=== PATIENT | male | born 1945 | race Caucasian/White ===

== ENCOUNTER 2019-10-16 13:35 | Inpatient (IN) ==
[2019-10-16] MEDS ORDERED: ONDANSETRON 4 MG/2 ML VIAL IV PRN (13:44)
[2019-10-16 15:29] LABS: Basophils # 0.1 10*3/uL (0.0-0.2); Basophils % 0.4 % (0.0-0.8); Hematocrit 34.7 VOL% (42.0-52.0); Hemoglobin 11.5 GM/DL (14.0-18.0); Immature Granulocytes % 1.3 %; Immature Granulocytes Absolute 0.19 #; Lymphocytes # 0.4 10*3/uL (1.4-4.0); Lymphocytes % 2.8 % (21.2-54.2); Mean Corpuscular HGB Conc 33.1 GM/DL (32-36); Mean Corpuscular Volume 99.4 FL (87-102); Mean Platelet Volume 11.6 FL (9.6-12.0); Monocytes % 2.9 % (1.7-12.7); Neutrophils % 92.6 % (38.7-73.9); Platelet Count 276 T/CUMM (130-400); Red Blood Count 3.49 MC/CUMM (3.8-5.5); White Blood Count 14.7 T/CUMM (4-12)
[2019-10-16 15:51] LABS: Albumin 2.3 G/DL (3.4-5.0); Calcium 10.3 MG/DL (8.5-10.1); Osmolality,Calculated 271.1 MOS/KG (273-304); Total Protein 7.9 G/DL (6.4-8.3)
[2019-10-16 15:57] LABS: Anisocytosis Slight; Lymphocytes 3 % (20-55); Macrocytosis Slight; Platelet Estimate Normal; Polychromasia Slight; Segmented Neutrophils 96 % (50-85); Total Cells Counted 100
[2019-10-16] MEDS: ACETAMINOPHEN 325 MG TABLET PO PRN (16:03)
[2019-10-16] MEDS: ENOXAPARIN 40 MG/0.4 ML SYRINGE SUBCUT SCH (16:03)
[2019-10-16] MEDS: PIPERACILLIN/TAZOBACTAM 3,375 MG in SODIUM CHLORIDE 0.9% 100 ML IV SCH (16:04)
[2019-10-16] MEDS: SODIUM CHLORIDE 0.9% 1,000 ML IV SCH (16:04)
[2019-10-16 17:27] LABS: Apearance,Urine Slightly Hazy (Clear); Bilirubin,Urine Negative (Negative); Blood, Urine Large mg/dL (Negative); Glucose,Urine (UA) Negative (Negative); Ketones,Urine 5 mg/dL (Negative); Mucus,Urine Occasional /LPF (Occasional); Nitrite,Urine Negative (Negative); Protein,Urine 30 MG/DL; RBC,Urine 106 /HPF (0-4); Squamous Epithelial Cell,Urine Occasional /HPF (0-10); Urine Color Amber (Yellow); Urine Specific Gravity 1.017 (1.001-1.035); WBC,Urine 20 /HPF (0-6)
[2019-10-16 17:44] LABS: Barbiturates Screen,Urine Negative (Negative); Benzodiazepines Screen,Urine Negative (Negative); Cannabinoid Screen,Urine Negative (Negative); Opiate Screen,Urine Negative (Negative); Phencyclidine Screen,Urine Negative (Negative)
[2019-10-16 18:24] LABS: Ferritin 832.6 ng/ml (26-388)
[2019-10-16] MEDS: METOPROLOL SUCCINATE XL 100 MG TABLET PO SCH (20:43)
[2019-10-16] MEDS: DOCUSATE SODIUM 100 MG CAPSULE PO SCH (20:43)
[2019-10-17] MEDS: PIPERACILLIN/TAZOBACTAM 3,375 MG in SODIUM CHLORIDE 0.9% 100 ML IV SCH ×4 (00:10→22:09)
[2019-10-17] MEDS: SODIUM CHLORIDE 0.9% 1,000 ML IV SCH ×3 (01:21→17:17)
[2019-10-17 06:22] LABS: Basophils # 0.1 10*3/uL (0.0-0.2); Basophils % 0.4 % (0.0-0.8); Hematocrit 31.1 VOL% (42.0-52.0); Hemoglobin 10.7 GM/DL (14.0-18.0); Immature Granulocytes % 0.7 %; Immature Granulocytes Absolute 0.12 #; Lymphocytes # 0.8 10*3/uL (1.4-4.0); Lymphocytes % 4.9 % (21.2-54.2); Mean Corpuscular HGB Conc 34.4 GM/DL (32-36); Mean Corpuscular Volume 94.8 FL (87-102); Mean Platelet Volume 12.5 FL (9.6-12.0); Monocytes % 4.6 % (1.7-12.7); Neutrophils % 89.4 % (38.7-73.9); Platelet Count 224 T/CUMM (130-400); Red Blood Count 3.28 MC/CUMM (3.8-5.5); Red Cell Distribution Width 13.6 % (9.3-17.3); White Blood Count 17.1 T/CUMM (4-12)
[2019-10-17 06:42] LABS: Hypochromasia 1+; Lymphocytes 8 % (20-55); Platelet Estimate Adequate; Segmented Neutrophils 87 % (50-85); Total Cells Counted 100
[2019-10-17 06:43] LABS: Macrocytosis Slight
[2019-10-17 06:53] LABS: Calcium 9.8 MG/DL (8.5-10.1); Osmolality,Calculated 264.7 MOS/KG (273-304)
[2019-10-17] MEDS: NYSTATIN 500,000 UNIT/5 ML UDCUP SWISH/SWAL SCH ×4 (10:02→20:30)
[2019-10-17] MEDS: DOCUSATE SODIUM 100 MG CAPSULE PO SCH ×2 (10:02→20:30)
[2019-10-17] MEDS: PANTOPRAZOLE 40 MG TABLET PO SCH (10:02)
[2019-10-17] MEDS: METOPROLOL SUCCINATE XL 50 MG TABLET PO SCH (10:02)
[2019-10-17] MEDS: ENOXAPARIN 40 MG/0.4 ML SYRINGE SUBCUT SCH (17:17)
[2019-10-17] MEDS: METOPROLOL SUCCINATE XL 100 MG TABLET PO SCH (20:30)
[2019-10-18] MEDS: SODIUM CHLORIDE 0.9% 1,000 ML IV SCH ×3 (05:34→16:34)
[2019-10-18 06:00] LABS: Basophils # 0.1 10*3/uL (0.0-0.2); Basophils % 0.4 % (0.0-0.8); Eosinophils # 0.1 10*3/uL (0.0-0.87); Eosinophils % 0.5 % (0.00-10.9); Hematocrit 31.3 VOL% (42.0-52.0); Hemoglobin 10.7 GM/DL (14.0-18.0); Immature Granulocytes % 1.2 %; Immature Granulocytes Absolute 0.16 #; Lymphocytes # 0.8 10*3/uL (1.4-4.0); Lymphocytes % 5.9 % (21.2-54.2); Mean Corpuscular HGB Conc 34.2 GM/DL (32-36); Mean Corpuscular Volume 95.7 FL (87-102); Mean Platelet Volume 12.3 FL (9.6-12.0); Platelet Count 272 T/CUMM (130-400); Red Blood Count 3.27 MC/CUMM (3.8-5.5); Red Cell Distribution Width 13.7 % (9.3-17.3); White Blood Count 13.8 T/CUMM (4-12)
[2019-10-18] MEDS: PIPERACILLIN/TAZOBACTAM 3,375 MG in SODIUM CHLORIDE 0.9% 100 ML IV SCH ×3 (06:09→22:19)
[2019-10-18 06:17] LABS: Calcium 10.2 MG/DL (8.5-10.1); Osmolality,Calculated 275.8 MOS/KG (273-304)
[2019-10-18 06:24] LABS: Target Cells Slight
[2019-10-18 06:25] LABS: Hypochromasia 1+; Macrocytosis Slight; Platelet Estimate Normal; Polychromasia Slight
[2019-10-18] MEDS: METOPROLOL SUCCINATE XL 50 MG TABLET PO SCH (09:02)
[2019-10-18] MEDS: DOCUSATE SODIUM 100 MG CAPSULE PO SCH ×2 (09:02→21:15)
[2019-10-18] MEDS: PANTOPRAZOLE 40 MG TABLET PO SCH (09:02)
[2019-10-18] MEDS: NYSTATIN 500,000 UNIT/5 ML UDCUP SWISH/SWAL SCH ×4 (09:02→21:15)
[2019-10-18] MEDS: ENOXAPARIN 40 MG/0.4 ML SYRINGE SUBCUT SCH (16:33)
[2019-10-18] MEDS: METOPROLOL SUCCINATE XL 100 MG TABLET PO SCH (21:15)
[2019-10-19 06:11] LABS: Calcium 10.6 MG/DL (8.5-10.1); Osmolality,Calculated 272.8 MOS/KG (273-304)
[2019-10-19] MEDS: PIPERACILLIN/TAZOBACTAM 3,375 MG in SODIUM CHLORIDE 0.9% 100 ML IV SCH ×2 (06:32→15:20)
[2019-10-19 06:34] LABS: Basophils # 0.1 10*3/uL (0.0-0.2); Basophils % 0.7 % (0.0-0.8); Eosinophils # 0.1 10*3/uL (0.0-0.87); Eosinophils % 0.7 % (0.00-10.9); Hematocrit 34.9 VOL% (42.0-52.0); Hemoglobin 11.7 GM/DL (14.0-18.0); Immature Granulocytes % 1.1 %; Immature Granulocytes Absolute 0.13 #; Lymphocytes % 8.1 % (21.2-54.2); Mean Corpuscular HGB Conc 33.5 GM/DL (32-36); Mean Corpuscular Volume 96.9 FL (87-102); Mean Platelet Volume 13.7 FL (9.6-12.0); Monocytes % 5.2 % (1.7-12.7); Neutrophils % 84.2 % (38.7-73.9); Platelet Count 201 T/CUMM (130-400); Red Cell Distribution Width 14.1 % (9.3-17.3); White Blood Count 12.4 T/CUMM (4-12)
[2019-10-19] MEDS: SODIUM CHLORIDE 0.9% 1,000 ML IV SCH ×2 (07:46→20:45)
[2019-10-19] MEDS: NYSTATIN 500,000 UNIT/5 ML UDCUP SWISH/SWAL SCH ×4 (08:14→20:45)
[2019-10-19] MEDS: METOPROLOL SUCCINATE XL 50 MG TABLET PO SCH (08:14)
[2019-10-19] MEDS: PANTOPRAZOLE 40 MG TABLET PO SCH (08:14)
[2019-10-19] MEDS: DOCUSATE SODIUM 100 MG CAPSULE PO SCH ×2 (08:14→20:45)
[2019-10-19] MEDS ORDERED: FUROSEMIDE 40 MG TABLET PO ONE (09:00)
[2019-10-19] MEDS: ENOXAPARIN 40 MG/0.4 ML SYRINGE SUBCUT SCH (15:20)
[2019-10-19] MEDS: METOPROLOL SUCCINATE XL 100 MG TABLET PO SCH (20:45)
[2019-10-20] MEDS: PIPERACILLIN/TAZOBACTAM 3,375 MG in SODIUM CHLORIDE 0.9% 100 ML IV SCH ×3 (01:20→14:50)
[2019-10-20 06:49] LABS: Bilirubin,Total 2.2 MG/DL (0.2-1.0); Calcium 10.1 MG/DL (8.5-10.1); Ferritin 677.9 ng/ml (26-388); Osmolality,Calculated 271.8 MOS/KG (273-304); Total Protein 7.7 G/DL (6.4-8.3)
[2019-10-20 07:08] LABS: Albumin 1.9 G/DL (3.4-5.0); Bilirubin,Direct 0.3 MG/DL (0.0-0.20); Bilirubin,Indirect 1.3 MG/DL (0.0-1.0); Bilirubin,Total 1.6 MG/DL (0.2-1.0); Total Protein 7.8 G/DL (6.4-8.3)
[2019-10-20] MEDS: NYSTATIN 500,000 UNIT/5 ML UDCUP SWISH/SWAL SCH ×4 (09:46→20:30)
[2019-10-20] MEDS: PANTOPRAZOLE 40 MG TABLET PO SCH (09:47)
[2019-10-20] MEDS: METOPROLOL SUCCINATE XL 50 MG TABLET PO SCH (09:47)
[2019-10-20] MEDS: DOCUSATE SODIUM 100 MG CAPSULE PO SCH ×2 (09:47→20:30)
[2019-10-20] MEDS: ENOXAPARIN 40 MG/0.4 ML SYRINGE SUBCUT SCH (14:51)
[2019-10-20] MEDS: METOPROLOL SUCCINATE XL 100 MG TABLET PO SCH (20:30)
[2019-10-21] MEDS: PIPERACILLIN/TAZOBACTAM 3,375 MG in SODIUM CHLORIDE 0.9% 100 ML IV SCH ×4 (00:58→23:39)
[2019-10-21 06:09] LABS: Bilirubin,Total 1.5 MG/DL (0.2-1.0); Calcium 9.8 MG/DL (8.5-10.1); Osmolality,Calculated 272.8 MOS/KG (273-304); Total Protein 7.6 G/DL (6.4-8.3)
[2019-10-21] MEDS: SODIUM CHLORIDE 0.9% 1,000 ML IV SCH ×3 (07:07→18:12)
[2019-10-21] MEDS: DOCUSATE SODIUM 100 MG CAPSULE PO SCH ×2 (08:07→20:21)
[2019-10-21] MEDS: METOPROLOL SUCCINATE XL 50 MG TABLET PO SCH (08:07)
[2019-10-21] MEDS: NYSTATIN 500,000 UNIT/5 ML UDCUP SWISH/SWAL SCH ×4 (08:07→20:21)
[2019-10-21] MEDS: PANTOPRAZOLE 40 MG TABLET PO SCH (08:07)
[2019-10-21] MEDS ORDERED: FUROSEMIDE 40 MG/4 ML VIAL IV ONE (15:28)
[2019-10-21] MEDS: ENOXAPARIN 40 MG/0.4 ML SYRINGE SUBCUT SCH (16:09)
[2019-10-21] MEDS: METOPROLOL SUCCINATE XL 100 MG TABLET PO SCH (20:21)
[2019-10-22 06:11] LABS: Bilirubin,Total 1.5 MG/DL (0.2-1.0); Calcium 10.1 MG/DL (8.5-10.1); Osmolality,Calculated 273.8 MOS/KG (273-304)
[2019-10-22] MEDS: SODIUM CHLORIDE 0.9% 1,000 ML IV SCH ×2 (07:09→16:04)
[2019-10-22] MEDS: PIPERACILLIN/TAZOBACTAM 3,375 MG in SODIUM CHLORIDE 0.9% 100 ML IV SCH ×3 (07:09→23:15)
[2019-10-22] MEDS: PANTOPRAZOLE 40 MG TABLET PO SCH (09:18)
[2019-10-22] MEDS: DOCUSATE SODIUM 100 MG CAPSULE PO SCH ×2 (09:18→20:32)
[2019-10-22] MEDS: NYSTATIN 500,000 UNIT/5 ML UDCUP SWISH/SWAL SCH ×4 (09:18→20:31)
[2019-10-22] MEDS: METOPROLOL SUCCINATE XL 50 MG TABLET PO SCH (09:18)
[2019-10-22] MEDS: FUROSEMIDE 40 MG/4 ML VIAL IV SCH (09:18)
[2019-10-22] MEDS: VANCOMYCIN INJ 1,500 MG in SODIUM CHLORIDE 0.9% 500 ML IV SCH (14:18)
[2019-10-22] MEDS: ENOXAPARIN 40 MG/0.4 ML SYRINGE SUBCUT SCH (14:28)
[2019-10-22] MEDS: METOPROLOL SUCCINATE XL 100 MG TABLET PO SCH (20:31)
[2019-10-22] MEDS: ACETAMINOPHEN 325 MG TABLET PO PRN (23:15)
[2019-10-23] MEDS: ACETAMINOPHEN 325 MG TABLET PO PRN (05:18)
[2019-10-23] MEDS: SODIUM CHLORIDE 0.9% 1,000 ML IV SCH (05:21)
[2019-10-23 06:00] LABS: Basophils # 0.1 10*3/uL (0.0-0.2); Basophils % 0.7 % (0.0-0.8); Eosinophils # 0.2 10*3/uL (0.0-0.87); Eosinophils % 1.7 % (0.00-10.9); Hematocrit 28.6 VOL% (42.0-52.0); Hemoglobin 9.3 GM/DL (14.0-18.0); Immature Granulocytes % 0.9 %; Immature Granulocytes Absolute 0.11 #; Lymphocytes # 1.1 10*3/uL (1.4-4.0); Lymphocytes % 9.3 % (21.2-54.2); Mean Corpuscular HGB Conc 32.5 GM/DL (32-36); Mean Corpuscular Volume 99.7 FL (87-102); Mean Platelet Volume 11.1 FL (9.6-12.0); Monocytes % 6.1 % (1.7-12.7); Neutrophils % 81.3 % (38.7-73.9); Platelet Count 427 T/CUMM (130-400); Red Blood Count 2.87 MC/CUMM (3.8-5.5); Red Cell Distribution Width 13.6 % (9.3-17.3); White Blood Count 11.7 T/CUMM (4-12)
[2019-10-23 06:15] LABS: Calcium 9.8 MG/DL (8.5-10.1)
[2019-10-23] MEDS: PIPERACILLIN/TAZOBACTAM 3,375 MG in SODIUM CHLORIDE 0.9% 100 ML IV SCH ×3 (06:28→22:19)
[2019-10-23] MEDS: VANCOMYCIN INJ 1,500 MG in SODIUM CHLORIDE 0.9% 500 ML IV SCH (08:52)
[2019-10-23] MEDS: NYSTATIN 500,000 UNIT/5 ML UDCUP SWISH/SWAL SCH ×4 (09:00→21:37)
[2019-10-23] MEDS: METOPROLOL SUCCINATE XL 50 MG TABLET PO SCH (09:01)
[2019-10-23] MEDS: FUROSEMIDE 40 MG/4 ML VIAL IV SCH (09:01)
[2019-10-23] MEDS: PANTOPRAZOLE 40 MG TABLET PO SCH (09:01)
[2019-10-23] MEDS: DOCUSATE SODIUM 100 MG CAPSULE PO SCH ×2 (09:02→21:36)
[2019-10-23] MEDS: ENOXAPARIN 40 MG/0.4 ML SYRINGE SUBCUT SCH (17:06)
[2019-10-23] MEDS: METOPROLOL SUCCINATE XL 100 MG TABLET PO SCH (21:37)
[2019-10-24] MEDS: SODIUM CHLORIDE 0.9% 1,000 ML IV SCH ×2 (00:07→22:30)
[2019-10-24] MEDS: VANCOMYCIN INJ 1,500 MG in SODIUM CHLORIDE 0.9% 500 ML IV SCH ×2 (02:42→22:31)
[2019-10-24 06:49] LABS: Basophils # 0.1 10*3/uL (0.0-0.2); Basophils % 0.8 % (0.0-0.8); Eosinophils # 0.3 10*3/uL (0.0-0.87); Eosinophils % 2.9 % (0.00-10.9); Hematocrit 26.4 VOL% (42.0-52.0); Hemoglobin 8.5 GM/DL (14.0-18.0); Immature Granulocytes % 0.8 %; Immature Granulocytes Absolute 0.07 #; Lymphocytes # 1.1 10*3/uL (1.4-4.0); Lymphocytes % 12.5 % (21.2-54.2); Mean Corpuscular HGB Conc 32.2 GM/DL (32-36); Mean Corpuscular Volume 101.1 FL (87-102); Mean Platelet Volume 11.2 FL (9.6-12.0); Monocytes % 10.3 % (1.7-12.7); Neutrophils % 72.7 % (38.7-73.9); Platelet Count 402 T/CUMM (130-400); Red Blood Count 2.61 MC/CUMM (3.8-5.5); Red Cell Distribution Width 13.6 % (9.3-17.3); White Blood Count 8.7 T/CUMM (4-12)
[2019-10-24] MEDS: PIPERACILLIN/TAZOBACTAM 3,375 MG in SODIUM CHLORIDE 0.9% 100 ML IV SCH ×2 (07:10→17:17)
[2019-10-24 07:11] LABS: Calcium 10.1 MG/DL (8.5-10.1); Osmolality,Calculated 273.8 MOS/KG (273-304)
[2019-10-24] MEDS: NYSTATIN 500,000 UNIT/5 ML UDCUP SWISH/SWAL SCH ×4 (09:05→22:31)
[2019-10-24] MEDS: PANTOPRAZOLE 40 MG TABLET PO SCH (09:05)
[2019-10-24] MEDS: METOPROLOL SUCCINATE XL 50 MG TABLET PO SCH (09:05)
[2019-10-24] MEDS: FUROSEMIDE 40 MG/4 ML VIAL IV SCH (09:06)
[2019-10-24] MEDS: DOCUSATE SODIUM 100 MG CAPSULE PO SCH ×2 (09:06→22:32)
[2019-10-24] MEDS: ENOXAPARIN 40 MG/0.4 ML SYRINGE SUBCUT SCH (17:17)
[2019-10-24] MEDS: METOPROLOL SUCCINATE XL 100 MG TABLET PO SCH (22:32)
[2019-10-25] MEDS: PIPERACILLIN/TAZOBACTAM 3,375 MG in SODIUM CHLORIDE 0.9% 100 ML IV SCH ×3 (02:17→17:45)
[2019-10-25 06:02] LABS: Basophils # 0.1 10*3/uL (0.0-0.2); Basophils % 0.6 % (0.0-0.8); Eosinophils # 0.2 10*3/uL (0.0-0.87); Eosinophils % 2.2 % (0.00-10.9); Hematocrit 25.8 VOL% (42.0-52.0); Hemoglobin 8.2 GM/DL (14.0-18.0); Immature Granulocytes % 0.7 %; Immature Granulocytes Absolute 0.06 #; Lymphocytes % 11.5 % (21.2-54.2); Mean Corpuscular HGB Conc 31.8 GM/DL (32-36); Mean Platelet Volume 11.1 FL (9.6-12.0); Monocytes % 8.3 % (1.7-12.7); Neutrophils % 76.7 % (38.7-73.9); Platelet Count 394 T/CUMM (130-400); Red Blood Count 2.53 MC/CUMM (3.8-5.5); Red Cell Distribution Width 13.6 % (9.3-17.3); White Blood Count 8.3 T/CUMM (4-12)
[2019-10-25 06:32] LABS: Calcium 9.8 MG/DL (8.5-10.1); Osmolality,Calculated 272.8 MOS/KG (273-304)
[2019-10-25] MEDS: FUROSEMIDE 40 MG/4 ML VIAL IV SCH (09:20)
[2019-10-25] MEDS: DOCUSATE SODIUM 100 MG CAPSULE PO SCH ×4 (09:20→21:37)
[2019-10-25] MEDS: METOPROLOL SUCCINATE XL 50 MG TABLET PO SCH (09:20)
[2019-10-25] MEDS: NYSTATIN 500,000 UNIT/5 ML UDCUP SWISH/SWAL SCH ×4 (09:20→21:35)
[2019-10-25] MEDS: PANTOPRAZOLE 40 MG TABLET PO SCH (09:20)
[2019-10-25] MEDS: NYSTATIN CREAM 15 GM TUBE TOP SCH ×2 (11:28→21:35)
[2019-10-25] MEDS: VANCOMYCIN INJ 1,500 MG in SODIUM CHLORIDE 0.9% 500 ML IV SCH (14:52)
[2019-10-25] MEDS: ENOXAPARIN 40 MG/0.4 ML SYRINGE SUBCUT SCH (14:52)
[2019-10-25] MEDS: SODIUM CHLORIDE 0.9% 1,000 ML IV SCH (17:45)
[2019-10-25] MEDS: METOPROLOL SUCCINATE XL 100 MG TABLET PO SCH (21:35)
[2019-10-26] MEDS: PIPERACILLIN/TAZOBACTAM 3,375 MG in SODIUM CHLORIDE 0.9% 100 ML IV SCH ×3 (03:00→17:27)
[2019-10-26 07:12] LABS: Basophils % 0.4 % (0.0-0.8); Eosinophils # 0.1 10*3/uL (0.0-0.87); Eosinophils % 1.5 % (0.00-10.9); Hematocrit 24.9 VOL% (42.0-52.0); Hemoglobin 8.2 GM/DL (14.0-18.0); Immature Granulocytes % 0.4 %; Immature Granulocytes Absolute 0.04 #; Lymphocytes % 10.1 % (21.2-54.2); Mean Corpuscular HGB Conc 32.9 GM/DL (32-36); Mean Corpuscular Volume 98.4 FL (87-102); Mean Platelet Volume 10.7 FL (9.6-12.0); Neutrophils % 79.6 % (38.7-73.9); Platelet Count 346 T/CUMM (130-400); Red Blood Count 2.53 MC/CUMM (3.8-5.5); Red Cell Distribution Width 13.5 % (9.3-17.3); White Blood Count 9.4 T/CUMM (4-12)
[2019-10-26] MEDS: DOCUSATE SODIUM 100 MG CAPSULE PO SCH ×2 (09:11→21:36)
[2019-10-26] MEDS: VANCOMYCIN INJ 1,500 MG in SODIUM CHLORIDE 0.9% 500 ML IV SCH (09:11)
[2019-10-26] MEDS: METOPROLOL SUCCINATE XL 50 MG TABLET PO SCH (09:11)
[2019-10-26] MEDS: NYSTATIN 500,000 UNIT/5 ML UDCUP SWISH/SWAL SCH ×4 (09:12→21:35)
[2019-10-26] MEDS: FUROSEMIDE 40 MG/4 ML VIAL IV SCH (09:12)
[2019-10-26] MEDS: NYSTATIN CREAM 15 GM TUBE TOP SCH ×2 (09:14→23:11)
[2019-10-26] MEDS: PANTOPRAZOLE 40 MG TABLET PO SCH (09:14)
[2019-10-26] MEDS: ENOXAPARIN 40 MG/0.4 ML SYRINGE SUBCUT SCH (14:01)
[2019-10-26] MEDS: ACETAMINOPHEN 325 MG TABLET PO PRN (21:35)
[2019-10-26] MEDS: METOPROLOL SUCCINATE XL 100 MG TABLET PO SCH (21:36)
[2019-10-27] MEDS: VANCOMYCIN INJ 1,500 MG in SODIUM CHLORIDE 0.9% 500 ML IV SCH (01:08)
[2019-10-27] MEDS: PIPERACILLIN/TAZOBACTAM 3,375 MG in SODIUM CHLORIDE 0.9% 100 ML IV SCH (01:10)
[2019-10-27] MEDS: SODIUM CHLORIDE 0.9% 1,000 ML IV SCH ×2 (08:50→08:52)
[2019-10-27] MEDS: PANTOPRAZOLE 40 MG TABLET PO SCH (08:52)
[2019-10-27] MEDS: NYSTATIN 500,000 UNIT/5 ML UDCUP SWISH/SWAL SCH ×4 (08:52→20:50)
[2019-10-27] MEDS: METOPROLOL SUCCINATE XL 50 MG TABLET PO SCH (08:52)
[2019-10-27] MEDS: FUROSEMIDE 40 MG/4 ML VIAL IV SCH (08:53)
[2019-10-27] MEDS: FLUCONAZOLE 100 MG TABLET PO SCH (08:53)
[2019-10-27] MEDS: DOCUSATE SODIUM 100 MG CAPSULE PO SCH ×2 (08:53→20:55)
[2019-10-27] MEDS: NYSTATIN CREAM 15 GM TUBE TOP SCH ×2 (08:54→20:50)
[2019-10-27] MEDS: ceFAZolin 2,000 MG in PREMIX 1 EACH IV SCH ×2 (10:57→17:32)
[2019-10-27] MEDS: ENOXAPARIN 40 MG/0.4 ML SYRINGE SUBCUT SCH (14:41)
[2019-10-27] MEDS: METOPROLOL SUCCINATE XL 100 MG TABLET PO SCH (20:52)
[2019-10-28] MEDS: ceFAZolin 2,000 MG in PREMIX 1 EACH IV SCH ×3 (01:26→17:28)
[2019-10-28] MEDS: SODIUM CHLORIDE 0.9% 1,000 ML IV SCH ×2 (04:51→21:26)
[2019-10-28 06:15] LABS: Basophils # 0.1 10*3/uL (0.0-0.2); Basophils % 0.7 % (0.0-0.8); Eosinophils # 0.2 10*3/uL (0.0-0.87); Eosinophils % 1.8 % (0.00-10.9); Hematocrit 24.8 VOL% (42.0-52.0); Hemoglobin 7.9 GM/DL (14.0-18.0); Immature Granulocytes % 0.3 %; Immature Granulocytes Absolute 0.03 #; Lymphocytes # 0.9 10*3/uL (1.4-4.0); Lymphocytes % 9.7 % (21.2-54.2); Mean Corpuscular HGB Conc 31.9 GM/DL (32-36); Mean Corpuscular Volume 99.6 FL (87-102); Mean Platelet Volume 11.4 FL (9.6-12.0); Monocytes % 6.6 % (1.7-12.7); Neutrophils % 80.9 % (38.7-73.9); Platelet Count 351 T/CUMM (130-400); Red Blood Count 2.49 MC/CUMM (3.8-5.5); Red Cell Distribution Width 13.2 % (9.3-17.3); White Blood Count 8.8 T/CUMM (4-12)
[2019-10-28 06:45] LABS: Calcium 9.9 MG/DL (8.5-10.1)
[2019-10-28] MEDS: FUROSEMIDE 40 MG/4 ML VIAL IV SCH (09:15)
[2019-10-28] MEDS: FLUCONAZOLE 100 MG TABLET PO SCH (09:17)
[2019-10-28] MEDS: METOPROLOL SUCCINATE XL 50 MG TABLET PO SCH (09:17)
[2019-10-28] MEDS: PANTOPRAZOLE 40 MG TABLET PO SCH (09:17)
[2019-10-28] MEDS: NYSTATIN 500,000 UNIT/5 ML UDCUP SWISH/SWAL SCH ×4 (09:17→21:25)
[2019-10-28] MEDS: NYSTATIN CREAM 15 GM TUBE TOP SCH ×2 (09:18→21:30)
[2019-10-28] MEDS: DOCUSATE SODIUM 100 MG CAPSULE PO SCH ×2 (09:20→21:25)
[2019-10-28] MEDS: ENOXAPARIN 40 MG/0.4 ML SYRINGE SUBCUT SCH (14:00)
[2019-10-28] MEDS: METOPROLOL SUCCINATE XL 100 MG TABLET PO SCH (21:25)
[2019-10-29] MEDS: ceFAZolin 2,000 MG in PREMIX 1 EACH IV SCH ×3 (02:31→17:40)
[2019-10-29] MEDS: SODIUM CHLORIDE 0.9% 1,000 ML IV SCH ×2 (07:00→19:39)
[2019-10-29] MEDS: FLUCONAZOLE 100 MG TABLET PO SCH (09:07)
[2019-10-29] MEDS: METOPROLOL SUCCINATE XL 50 MG TABLET PO SCH (09:07)
[2019-10-29] MEDS: PANTOPRAZOLE 40 MG TABLET PO SCH (09:07)
[2019-10-29] MEDS: NYSTATIN 500,000 UNIT/5 ML UDCUP SWISH/SWAL SCH ×4 (09:08→21:51)
[2019-10-29] MEDS: FUROSEMIDE 40 MG/4 ML VIAL IV SCH (09:08)
[2019-10-29] MEDS: DOCUSATE SODIUM 100 MG CAPSULE PO SCH ×2 (09:09→21:51)
[2019-10-29] MEDS: NYSTATIN CREAM 15 GM TUBE TOP SCH ×2 (09:09→23:16)
[2019-10-29] MEDS: ENOXAPARIN 40 MG/0.4 ML SYRINGE SUBCUT SCH (14:15)
[2019-10-29] MEDS: METOPROLOL SUCCINATE XL 100 MG TABLET PO SCH (21:53)
[2019-10-30] MEDS: ceFAZolin 2,000 MG in PREMIX 1 EACH IV SCH ×3 (03:04→17:26)
[2019-10-30] MEDS: METOPROLOL SUCCINATE XL 50 MG TABLET PO SCH (08:44)
[2019-10-30] MEDS: FUROSEMIDE 40 MG/4 ML VIAL IV SCH (08:44)
[2019-10-30] MEDS: DOCUSATE SODIUM 100 MG CAPSULE PO SCH ×3 (08:44→22:27)
[2019-10-30] MEDS: NYSTATIN 500,000 UNIT/5 ML UDCUP SWISH/SWAL SCH ×4 (08:44→22:25)
[2019-10-30] MEDS: PANTOPRAZOLE 40 MG TABLET PO SCH (08:44)
[2019-10-30] MEDS: NYSTATIN CREAM 15 GM TUBE TOP SCH ×2 (08:45→22:27)
[2019-10-30 10:46] LABS: Basophils # 0.1 10*3/uL (0.0-0.2); Basophils % 0.6 % (0.0-0.8); Eosinophils # 0.1 10*3/uL (0.0-0.87); Eosinophils % 1.5 % (0.00-10.9); Hematocrit 27.5 VOL% (42.0-52.0); Hemoglobin 8.7 GM/DL (14.0-18.0); Immature Granulocytes % 0.4 %; Immature Granulocytes Absolute 0.04 #; Lymphocytes # 1.1 10*3/uL (1.4-4.0); Lymphocytes % 11.8 % (21.2-54.2); Mean Corpuscular HGB Conc 31.6 GM/DL (32-36); Mean Corpuscular Volume 101.5 FL (87-102); Mean Platelet Volume 11.3 FL (9.6-12.0); Monocytes % 6.2 % (1.7-12.7); Neutrophils % 79.5 % (38.7-73.9); Platelet Count 357 T/CUMM (130-400); Red Blood Count 2.71 MC/CUMM (3.8-5.5); Red Cell Distribution Width 13.3 % (9.3-17.3); White Blood Count 8.9 T/CUMM (4-12)
[2019-10-30 11:03] LABS: Calcium 10.4 MG/DL (8.5-10.1); Osmolality,Calculated 268.1 MOS/KG (273-304)
[2019-10-30] MEDS: ENOXAPARIN 40 MG/0.4 ML SYRINGE SUBCUT SCH (15:16)
[2019-10-30] MEDS: SODIUM CHLORIDE 0.9% 1,000 ML IV SCH (15:17)
[2019-10-30] MEDS: METOPROLOL SUCCINATE XL 100 MG TABLET PO SCH (22:25)
[2019-10-31] MEDS: ceFAZolin 2,000 MG in PREMIX 1 EACH IV SCH ×2 (02:55→09:24)
[2019-10-31] MEDS: PANTOPRAZOLE 40 MG TABLET PO SCH ×2 (09:12→09:18)
[2019-10-31] MEDS: METOPROLOL SUCCINATE XL 50 MG TABLET PO SCH (09:12)
[2019-10-31] MEDS: NYSTATIN CREAM 15 GM TUBE TOP SCH (09:13)
[2019-10-31] MEDS: DOCUSATE SODIUM 100 MG CAPSULE PO SCH (09:14)
[2019-10-31] MEDS: FUROSEMIDE 40 MG/4 ML VIAL IV SCH (09:19)
[2019-10-31] MEDS: NYSTATIN 500,000 UNIT/5 ML UDCUP SWISH/SWAL SCH ×2 (09:20→13:50)
[2019-10-31 12:54] VITALS: BP 125/48
== END 2019-10-31 14:35 | DRG 871 ==
LOC: N.3E 14:27 → N.2E 10-17 12:28 → N.3E 10-22 13:03
PROVIDERS: ADMIT Internal Medicine; ATTEND Internal Medicine

== ENCOUNTER 2020-07-06 14:42 | Inpatient (IN) ==
[2020-07-06 18:04] LABS: Basophils % 0.2 % (0.0-0.8); Hematocrit 44.9 VOL% (42.0-52.0); Hemoglobin 15.1 GM/DL (14.0-18.0); Immature Granulocytes % 0.4 %; Immature Granulocytes Absolute 0.04 #; Lymphocytes # 0.5 10*3/uL (1.4-4.0); Lymphocytes % 5.8 % (21.2-54.2); Mean Corpuscular HGB Conc 33.6 GM/DL (32-36); Mean Corpuscular Volume 101.1 FL (87-102); Mean Platelet Volume 11.2 FL (9.6-12.0); Neutrophils % 90.6 % (38.7-73.9); Platelet Count 176 T/CUMM (130-400); Red Blood Count 4.44 MC/CUMM (3.8-5.5); Red Cell Distribution Width 13.5 % (9.3-17.3); White Blood Count 9.4 T/CUMM (4-12)
[2020-07-06] MEDS ORDERED: SODIUM CHLORIDE 0.9% 500 ML IV STA (18:36)
[2020-07-06] MEDS ORDERED: SODIUM CHLORIDE 0.9% 250 ML IV STA (18:39)
[2020-07-06 19:02] LABS: Barbiturates Screen,Urine Negative (Negative); Benzodiazepines Screen,Urine Negative (Negative); Cannabinoid Screen,Urine Negative (Negative); Opiate Screen,Urine Negative (Negative); Phencyclidine Screen,Urine Negative (Negative)
[2020-07-06 19:05] LABS: Bilirubin,Urine Negative (Negative); Blood, Urine Moderate mg/dL (Negative); Glucose,Urine (UA) Negative (Negative); Ketones,Urine Negative (Negative); Mucus,Urine Occasional /LPF (Occasional); Nitrite,Urine Negative (Negative); Protein,Urine 30 MG/DL; RBC,Urine 3 /HPF (0-4); Squamous Epithelial Cell,Urine Occasional /HPF (0-10); Urine Appearance CLEAR (Clear); Urine Color Yellow (Yellow); Urine Specific Gravity 1.021 (1.001-1.035); Urine Urobilinogen < 2.0 EU/DL (0.2-1.0); WBC,Urine 5 /HPF (0-6)
[2020-07-06 19:42] LABS: Lymphocytes 2 % (20-55); Segmented Neutrophils 97 % (50-85); Total Cells Counted 100
[2020-07-06 19:51] LABS: Albumin 3.9 G/DL (3.4-5.0); Bilirubin,Total 1.4 MG/DL (0.2-1.0); Calcium 9.6 MG/DL (8.5-10.1); Osmolality,Calculated 268.4 MOS/KG (273-304); Total Protein 9.6 G/DL (6.4-8.3)
[2020-07-06] MEDS ORDERED: SODIUM CHLORIDE 0.9% 1,000 ML IV STA (19:56)
[2020-07-06] MEDS ORDERED: MORPHINE 4 MG/1 ML VIAL IV STA (20:16)
[2020-07-06] MEDS ORDERED: ONDANSETRON 4 MG/2 ML VIAL IV PRN (21:40)
[2020-07-06] MEDS ORDERED: LORazepam 2 MG/1 ML VIAL IV PRN (21:44)
[2020-07-07] MEDS: MORPHINE 4 MG/1 ML VIAL IV PRN ×2 (00:43→19:48)
[2020-07-07] MEDS: SODIUM CHLORIDE 0.9% 1,000 ML IV SCH ×2 (00:44→13:21)
[2020-07-07 05:16] LABS: Basophils % 0.1 % (0.0-0.8); Hematocrit 43.7 VOL% (42.0-52.0); Hemoglobin 14.8 GM/DL (14.0-18.0); Immature Granulocytes % 0.6 %; Immature Granulocytes Absolute 0.05 #; Lymphocytes # 0.8 10*3/uL (1.4-4.0); Lymphocytes % 8.6 % (21.2-54.2); Mean Corpuscular HGB Conc 33.9 GM/DL (32-36); Mean Corpuscular Volume 99.1 FL (87-102); Mean Platelet Volume 10.5 FL (9.6-12.0); Monocytes % 5.5 % (1.7-12.7); Neutrophils % 85.2 % (38.7-73.9); Platelet Count 175 T/CUMM (130-400); Red Blood Count 4.41 MC/CUMM (3.8-5.5); Red Cell Distribution Width 13.4 % (9.3-17.3); White Blood Count 8.9 T/CUMM (4-12)
[2020-07-07 05:27] LABS: INR 1.1; PT Patient Result 11.9 SECS (9.8-11.9); Partial Thromboplastin Time 26.5 SECS (23.9-33.8)
[2020-07-07 05:42] LABS: Calcium 9.4 MG/DL (8.5-10.1); Osmolality,Calculated 271.1 MOS/KG (273-304); Risk Ratio 3.58
[2020-07-07 05:53] LABS: Folate 8.1 NG/ML (5.4-24.0)
[2020-07-07] MEDS: THIAMINE 200 MG/2 ML VIAL IV SCH (09:27)
[2020-07-07] MEDS: PANTOPRAZOLE 40 MG TABLET PO SCH (09:27)
[2020-07-07] MEDS: FOLIC ACID 1 MG TABLET PO SCH (09:27)
[2020-07-08] MEDS: SODIUM CHLORIDE 0.9% 1,000 ML IV SCH (00:58)
[2020-07-08] MEDS: FOLIC ACID 1 MG TABLET PO SCH (10:34)
[2020-07-08] MEDS: ASPIRIN EC 81 MG TABLET PO SCH (10:34)
[2020-07-08] MEDS: PANTOPRAZOLE 40 MG TABLET PO SCH (10:34)
[2020-07-08] MEDS: THIAMINE 200 MG/2 ML VIAL IV SCH (10:35)
[2020-07-08] MEDS: PIPERACILLIN/TAZOBACTAM 3,375 MG in SODIUM CHLORIDE 0.9% 100 ML IV SCH ×2 (11:52→21:14)
[2020-07-08] MEDS: MORPHINE 4 MG/1 ML VIAL IV PRN (15:14)
[2020-07-08] MEDS: OXYBUTYNIN XL 15 MG TABLET PO SCH (21:16)
[2020-07-08] MEDS: METOPROLOL SUCCINATE XL 100 MG TABLET PO SCH (21:16)
[2020-07-09] MEDS: SODIUM CHLORIDE 0.9% 1,000 ML IV SCH ×3 (03:28→21:15)
[2020-07-09] MEDS: PIPERACILLIN/TAZOBACTAM 3,375 MG in SODIUM CHLORIDE 0.9% 100 ML IV SCH ×3 (03:28→21:11)
[2020-07-09 05:28] LABS: Lymphocytes # 0.9 10*3/uL (1.4-4.0); Mean Corpuscular Volume 100.3 FL (87-102); Neutrophils % 77.6 % (38.7-73.9); Red Cell Distribution Width 13.4 % (9.3-17.3)
[2020-07-09 05:42] LABS: Basophils # 0.1 10*3/uL (0.0-0.2); Basophils % 0.7 % (0.0-0.8); Eosinophils # 0.2 10*3/uL (0.0-0.87); Hematocrit 35.6 VOL% (42.0-52.0); Immature Granulocytes % 0.1 %; Immature Granulocytes Absolute 0.01 #; Lymphocytes % 11.9 % (21.2-54.2); Mean Corpuscular HGB Conc 34.6 GM/DL (32-36); Mean Platelet Volume 11.2 FL (9.6-12.0); Monocytes % 7.7 % (1.7-12.7); Platelet Count 152 T/CUMM (130-400); Red Blood Count 3.55 MC/CUMM (3.8-5.5); White Blood Count 7.6 T/CUMM (4-12)
[2020-07-09 05:46] LABS: Hemoglobin 12.3 GM/DL (14.0-18.0)
[2020-07-09] MEDS: FOLIC ACID 1 MG TABLET PO SCH (09:08)
[2020-07-09] MEDS: PANTOPRAZOLE 40 MG TABLET PO SCH (09:08)
[2020-07-09] MEDS: ASPIRIN EC 81 MG TABLET PO SCH (09:08)
[2020-07-09] MEDS: THIAMINE 200 MG/2 ML VIAL IV SCH (09:09)
[2020-07-09] MEDS: METOPROLOL SUCCINATE XL 50 MG TABLET PO SCH (10:21)
[2020-07-09] MEDS: METOPROLOL SUCCINATE XL 100 MG TABLET PO SCH (21:11)
[2020-07-09] MEDS: OXYBUTYNIN XL 15 MG TABLET PO SCH (21:11)
[2020-07-10] MEDS: PIPERACILLIN/TAZOBACTAM 3,375 MG in SODIUM CHLORIDE 0.9% 100 ML IV SCH (04:21)
[2020-07-10 06:11] LABS: Basophils % 0.5 % (0.0-0.8); Eosinophils # 0.4 10*3/uL (0.0-0.87); Eosinophils % 5.8 % (0.00-10.9); Hematocrit 33.3 VOL% (42.0-52.0); Hemoglobin 11.4 GM/DL (14.0-18.0); Immature Granulocytes % 0.3 %; Immature Granulocytes Absolute 0.02 #; Lymphocytes % 15.9 % (21.2-54.2); Mean Corpuscular HGB Conc 34.2 GM/DL (32-36); Mean Corpuscular Volume 100.6 FL (87-102); Mean Platelet Volume 11.4 FL (9.6-12.0); Monocytes % 7.4 % (1.7-12.7); Neutrophils % 70.1 % (38.7-73.9); Platelet Count 154 T/CUMM (130-400); Red Blood Count 3.31 MC/CUMM (3.8-5.5); Red Cell Distribution Width 13.2 % (9.3-17.3); White Blood Count 6.4 T/CUMM (4-12)
[2020-07-10 06:43] LABS: Albumin 2.5 G/DL (3.4-5.0); Bilirubin,Total 2.4 MG/DL (0.2-1.0); Calcium 9.2 MG/DL (8.5-10.1); Osmolality,Calculated 270.8 MOS/KG (273-304); Total Protein 7.1 G/DL (6.4-8.3)
[2020-07-10] MEDS: METOPROLOL SUCCINATE XL 50 MG TABLET PO SCH (10:07)
[2020-07-10] MEDS: FOLIC ACID 1 MG TABLET PO SCH (10:07)
[2020-07-10] MEDS: THIAMINE 200 MG/2 ML VIAL IV SCH (10:07)
[2020-07-10] MEDS: PANTOPRAZOLE 40 MG TABLET PO SCH (10:07)
[2020-07-10] MEDS: ASPIRIN EC 81 MG TABLET PO SCH (10:07)
[2020-07-10 11:55] VITALS: BP 133/61
== END 2020-07-10 13:10 | disposition home or self-care (01) | DRG 439 ==
LOC: N.ED 14:42 → N.3E 21:40
PROVIDERS: ADMIT Internal Medicine; ATTEND Internal Medicine